=== PATIENT | female | born 1950 | race African-American/Black ===

== ENCOUNTER 2017-09-18 00:30 | Inpatient (IN) | payer MEDICARE ==
[2017-09-18 00:47] LABS: ADD MAN DIFF? NO
[2017-09-18 00:50] LABS: BASOPHILS % 0.6 % (0.0-2.0); EOSINOPHILS # 0.3 10^3/ul (0.0-0.5); EOSINOPHILS % 4.6 % (0.0-7.0); HEMATOCRIT 35.2 % (37.0-47.0); HEMOGLOBIN 11.4 g/dl (12.0-16.0); LYMPHOCYTES # 2.7 10^3/ul (0.8-2.9); LYMPHOCYTES % 50.4 % (15.0-51.0); MEAN CORPUSCULAR HEMOGLOBIN 27.5 pg (29.0-33.0); MEAN CORPUSCULAR HGB CONC 32.4 g/dl (32.0-37.0); MEAN PLATELET VOLUME 10.9 fl (7.4-10.4); MONOCYTE # 0.4 10^3/ul (0.3-0.9); MONOCYTES % 8.1 % (0.0-11.0); NEUTROPHILS % 36.1 % (39.0-77.0); PLATELET COUNT 318 10^3/UL (140-415); RED BLOOD COUNT 4.14 10^6/ul (4.20-5.40); RED CELL DISTRIBUTION WIDTH 13.1 % (11.5-14.5)
[2017-09-18 00:50] LABS: WHITE BLOOD COUNT 5.4 10^3/ul (4.8-10.8)
[2017-09-18] MEDS: SOD CHLORIDE 0.9% 100 ML (01:02)
[2017-09-18] MEDS: IOHEXOL 300MG/ML 150 ML BTL (01:03)
[2017-09-18 01:05] LABS: HEMOGLOBIN A1C 10.8 % (0-5.9)
[2017-09-18 01:08] LABS: ANION GAP 8 (8-16); BLOOD UREA NITROGEN 15 mg/dl (7-20); CALCIUM 9.2 mg/dl (8.4-10.2); CARBON DIOXIDE 37 mmol/L (21-31); CHLORIDE 101 mmol/L (97-110); CHOL/HDL RATIO 4.3 RATIO; CHOLESTEROL 219 mg/dl (100-200); CREATININE 0.65 mg/dl (0.44-1.00); GLUCOSE 351 mg/dl (70-220); HDL CHOLESTEROL 50 mg/dl (35-98); LDL CHOLESTEROL,CALCULATED 144 mg/dl; POTASSIUM 3.9 mmol/L (3.5-5.1); SODIUM 142 mmol/L (135-144); TRIGLYCERIDES 123 mg/dl (0-149)
[2017-09-18 01:19] LABS: TROPONIN-I < 0.012 ng/ml (0.00-0.12)
[2017-09-18 01:30] LABS: INR 0.86; PROTIME 11.8 Sec (11.9-14.9); PT RATIO 0.9
[2017-09-18] MEDS ORDERED: ALTEPLASE 100 MG INJ IV* (01:30)
[2017-09-18] MEDS ORDERED: ALTEPLASE (tPA) 1 MG/ML BOLUS SYG IV* (01:30)
[2017-09-18] MEDS: SOD CHLORIDE 0.9% 50 ML IV (01:30)
[2017-09-18 01:31] LABS: PARTIAL THROMBOPLASTIN TIME 26.6 Sec (25.0-35.0)
[2017-09-18] MEDS: ONDANSETRON 4 MG INJ IV (01:59)
[2017-09-18] MEDS: ASPIRIN 325 MG TAB PO (02:00)
[2017-09-18] MEDS: METOPROLOL 5 MG INJ IV (05:49)
[2017-09-18] MEDS ORDERED: ALBUTEROL/IPRATROPIUM (NEB) 3 ML AMP HHN (06:30)
[2017-09-18] MEDS ORDERED: morphine 2 MG INJ IV (06:30)
[2017-09-18] MEDS ORDERED: NACL 0.9% 3 ML SYG IV (06:30)
[2017-09-18] MEDS ORDERED: ACETAMINOPHEN 325 MG TAB PO (06:30)
[2017-09-18] MEDS ORDERED: ONDANSETRON 4 MG INJ IV (06:30)
[2017-09-18] MEDS: ENOXAPARIN 40 MG/0.4 ML SYG SC (09:00)
[2017-09-18] MEDS: ASPIRIN 81 MG TAB PO (10:05)
[2017-09-18] MEDS ORDERED: DEXTROSE 50% 50 ML SYRINGE IV ×2 (13:00)
[2017-09-18] MEDS ORDERED: GLUCOSE GEL 15 GRAM TUBE PO ×2 (13:00)
[2017-09-18] MEDS ORDERED: GLUCAGON 1 MG INJ IM (13:00)
[2017-09-18] MEDS ORDERED: GLUCOSE GEL 15 GRAM TUBE BUCCAL (13:00)
[2017-09-18] MEDS ORDERED: hydrALAzine 20 MG INJ IV (14:30)
[2017-09-18] MEDS: INSULIN ASPART [NOVOLOG] 3 ML PEN SC ×5 (15:02→20:57)
[2017-09-18] MEDS: INSULIN GLARGINE [LANtus] 3 ML PEN SC (15:03)
[2017-09-18] MEDS ORDERED: INSULIN ASPART [NOVOLOG] 3 ML PEN SC ×2 (18:00)
[2017-09-18] MEDS: ATORVASTATIN 80 MG TAB PO ×2 (20:39→21:12)
[2017-09-18] MEDS ORDERED: ATORVASTATIN 20 MG TAB PO ×2 (21:00)
[2017-09-18] MEDS: LORAZEPAM 2 MG INJ IV (21:29)
[2017-09-19] MEDS ORDERED: INSULIN ASPART [NOVOLOG] 3 ML PEN SC (02:00)
[2017-09-19] MEDS: INSULIN ASPART [NOVOLOG] 3 ML PEN SC ×5 (02:10→12:21)
[2017-09-19] MEDS: ACCU-CHEK XX (02:15)
[2017-09-19] MEDS ORDERED: INSULIN GLARGINE [LANtus] 3 ML PEN SC (08:00)
[2017-09-19] MEDS: ASPIRIN 81 MG TAB PO (09:14)
[2017-09-19] MEDS: INSULIN GLARGINE [LANtus] 3 ML PEN SC (09:16)
[2017-09-19] MEDS: ENOXAPARIN 40 MG/0.4 ML SYG SC (09:26)
[2017-09-19 09:53] LABS: ADD MAN DIFF? NO
[2017-09-19 10:01] LABS: WHITE BLOOD COUNT 4.4 10^3/ul (4.8-10.8)
[2017-09-19 10:01] LABS: BASOPHILS % 0.2 % (0.0-2.0); EOSINOPHILS # 0.2 10^3/ul (0.0-0.5); EOSINOPHILS % 4.7 % (0.0-7.0); HEMATOCRIT 35.1 % (37.0-47.0); HEMOGLOBIN 10.9 g/dl (12.0-16.0); LYMPHOCYTES # 2.2 10^3/ul (0.8-2.9); LYMPHOCYTES % 48.9 % (15.0-51.0); MEAN CORPUSCULAR HEMOGLOBIN 26.8 pg (29.0-33.0); MEAN CORPUSCULAR HGB CONC 31.1 g/dl (32.0-37.0); MEAN CORPUSCULAR VOLUME 86.5 fl (82.0-101.0); MEAN PLATELET VOLUME 10.7 fl (7.4-10.4); MONOCYTE # 0.3 10^3/ul (0.3-0.9); MONOCYTES % 6.8 % (0.0-11.0); NEUTROPHIL # 1.8 10^3/ul (1.6-7.5); NEUTROPHILS % 39.4 % (39.0-77.0); PLATELET COUNT 307 10^3/UL (140-415); RED BLOOD COUNT 4.06 10^6/ul (4.20-5.40); RED CELL DISTRIBUTION WIDTH 13.2 % (11.5-14.5)
[2017-09-19 10:20] LABS: ALANINE AMINOTRANSFERASE 19 IU/L (13-69); ALBUMIN 3.4 g/dl (3.3-4.9); ALBUMIN/GLOBULIN RATIO 0.89; ALKALINE PHOSPHATASE 148 IU/L (42-121); ANION GAP 9 (8-16); ASPARTATE AMINO TRANSFERASE 14 IU/L (15-46); BILIRUBIN,INDIRECT 0.5 mg/dl (0-1.1); BILIRUBIN,TOTAL 0.5 mg/dl (0.2-1.3); BLOOD UREA NITROGEN 15 mg/dl (7-20); CARBON DIOXIDE 34 mmol/L (21-31); CHLORIDE 103 mmol/L (97-110); CHOL/HDL RATIO 4.4 RATIO; CHOLESTEROL 203 mg/dl (100-200); CREATININE 0.64 mg/dl (0.44-1.00); GLUCOSE 201 mg/dl (70-220); HDL CHOLESTEROL 46 mg/dl (35-98); LDL CHOLESTEROL,CALCULATED 130 mg/dl; MAGNESIUM 1.8 mg/dl (1.7-2.5); POTASSIUM 3.8 mmol/L (3.5-5.1); SODIUM 142 mmol/L (135-144); TOTAL PROTEIN 7.2 g/dl (6.1-8.1); TRIGLYCERIDES 137 mg/dl (0-149)
[2017-09-19 10:48] LABS: THYROID STIMULATING HORMONE 0.499 MIU/L (0.465-4.680)
[2017-09-19 12:44] LABS: HEMOGLOBIN A1C 10.9 % (0-5.9)
[2017-09-19] MEDS ORDERED: morphine LIQ (10 MG/5 ML) CUP PO (16:00)
== END 2017-09-19 17:10 | disposition home or self-care (01) | DRG 68 ==
LOC: MS4 09-19 04:38 → E/R 00:30 → MS3 02:12
PROVIDERS: Internal Medicine
DX: I66.22 Occlusion and stenosis of left posterior cerebral artery (principal); G45.9 Transient cerebral ischemic attack, unspecified; E11.65 Type 2 diabetes mellitus with hyperglycemia; E78.5 Hyperlipidemia, unspecified; I10 Essential (primary) hypertension; I16.0 Hypertensive urgency; R47.1 Dysarthria and anarthria; R20.0 Anesthesia of skin; Z87.891 Personal history of nicotine dependence
CPT/HCPCS: 36415; 70450; 70496; 70498; 70551; 71045; 80048; 80053; 80061; 82962; 83036; 83735; 84443; 84484; 85025; 85610; 85730; 92610; 93005; 93306; 93880; 96372; 97162; 99291-25

== ENCOUNTER 2017-09-21 22:02 | Inpatient (IN) | payer MEDICARE ==
[2017-09-21] MEDS ORDERED: ONDANSETRON 4 MG INJ (23:07)
[2017-09-21 23:23] LABS: ADD MAN DIFF? NO
[2017-09-21 23:26] LABS: BASOPHILS % 0.4 % (0.0-2.0); EOSINOPHILS # 0.3 10^3/ul (0.0-0.5); HEMATOCRIT 38.7 % (37.0-47.0); HEMOGLOBIN 12.2 g/dl (12.0-16.0); LYMPHOCYTES # 3.7 10^3/ul (0.8-2.9); LYMPHOCYTES % 45.5 % (15.0-51.0); MEAN CORPUSCULAR HGB CONC 31.5 g/dl (32.0-37.0); MEAN CORPUSCULAR VOLUME 85.6 fl (82.0-101.0); MEAN PLATELET VOLUME 10.6 fl (7.4-10.4); MONOCYTE # 0.5 10^3/ul (0.3-0.9); MONOCYTES % 6.3 % (0.0-11.0); NEUTROPHIL # 3.6 10^3/ul (1.6-7.5); NEUTROPHILS % 43.7 % (39.0-77.0); PLATELET COUNT 353 10^3/UL (140-415); RED BLOOD COUNT 4.52 10^6/ul (4.20-5.40); RED CELL DISTRIBUTION WIDTH 13.2 % (11.5-14.5)
[2017-09-21 23:26] LABS: WHITE BLOOD COUNT 8.2 10^3/ul (4.8-10.8)
[2017-09-21 23:43] LABS: AMPHETAMINE/METHAMPHETAMINE Negative (NEGATIVE); BARBITURATES Negative (NEGATIVE); BENZODIAZEPINES Negative (NEGATIVE); CANNABINOIDS Negative (NEGATIVE); COCAINE Negative (NEGATIVE); OPIATES Negative (NEGATIVE)
[2017-09-21 23:45] LABS: INR 0.89; PROTIME 12.1 Sec (11.9-14.9); PT RATIO 0.9
[2017-09-21 23:46] LABS: PARTIAL THROMBOPLASTIN TIME 29.7 Sec (25.0-35.0)
[2017-09-21 23:49] LABS: ALANINE AMINOTRANSFERASE 12 IU/L (13-69); ALBUMIN 4.1 g/dl (3.3-4.9); ALBUMIN/GLOBULIN RATIO 0.89; ALKALINE PHOSPHATASE 209 IU/L (42-121); ANION GAP 15 (8-16); ASPARTATE AMINO TRANSFERASE 18 IU/L (15-46); BILIRUBIN,INDIRECT 0.5 mg/dl (0-1.1); BILIRUBIN,TOTAL 0.5 mg/dl (0.2-1.3); BLOOD UREA NITROGEN 14 mg/dl (7-20); CARBON DIOXIDE 27 mmol/L (21-31); CHLORIDE 104 mmol/L (97-110); GLUCOSE 242 mg/dl (70-220); POTASSIUM 3.8 mmol/L (3.5-5.1); SALICYLATE 2.3 mg/dl (5.0-30.0); SODIUM 142 mmol/L (135-144); TOTAL PROTEIN 8.7 g/dl (6.1-8.1)
[2017-09-21 23:51] LABS: ACETAMINOPHEN < 10.0 ug/ml (10.0-30.0)
[2017-09-21 23:53] LABS: AMMONIA < 9 umol/l (9-30)
[2017-09-22 00:04] LABS: TROPONIN-I < 0.012 ng/ml (0.000-0.120)
[2017-09-22 00:04] LABS: B-TYPE NATRIURETIC PEPTIDE 102 PG/ML (0-125)
[2017-09-22 00:12] LABS: ETHANOL < 10.0 mg/dl
[2017-09-22] MEDS: LORAZEPAM 2 MG INJ IV ×2 (00:17→04:33)
[2017-09-22] MEDS ORDERED: BISACODYL (EC) 5 MG TAB PO (00:30)
[2017-09-22] MEDS ORDERED: ONDANSETRON 4 MG INJ IV (00:30)
[2017-09-22] MEDS: ONDANSETRON 4 MG INJ IV (00:30)
[2017-09-22] MEDS ORDERED: DOCUSATE SODIUM 100 MG CAP PO (00:30)
[2017-09-22] MEDS ORDERED: NACL 0.9% 3 ML SYG IV (00:30)
[2017-09-22] MEDS: ASPIRIN 325 MG TAB PO (00:30)
[2017-09-22 00:31] LABS: THYROID STIMULATING HORMONE 0.425 MIU/L (0.465-4.680)
[2017-09-22] MEDS ORDERED: HALOPERIDOL 5 MG INJ (00:46)
[2017-09-22] MEDS: HALOPERIDOL 5 MG INJ IM (00:53)
[2017-09-22] MEDS ORDERED: GLUCOSE GEL 15 GRAM TUBE BUCCAL (01:15)
[2017-09-22] MEDS ORDERED: GLUCAGON 1 MG INJ IM (01:15)
[2017-09-22] MEDS ORDERED: DEXTROSE 50% 50 ML SYRINGE IV ×2 (01:15)
[2017-09-22] MEDS ORDERED: GLUCOSE GEL 15 GRAM TUBE PO ×2 (01:15)
[2017-09-22] MEDS ORDERED: ACCU-CHEK XX (02:00)
[2017-09-22 02:55] LABS: GAMMA GLUTAMYL TRANSPEPTIDASE 21 IU/L (0-50)
[2017-09-22] MEDS: hydrALAzine 20 MG INJ IV ×2 (04:56→21:30)
[2017-09-22] MEDS: LABETALOL HCL 20MG INJ IV (05:22)
[2017-09-22] MEDS: INSULIN ASPART [NOVOLOG] 3 ML PEN SC ×5 (06:25→21:52)
[2017-09-22] MEDS: ASPIRIN 81 MG TAB PO (09:00)
[2017-09-22] MEDS ORDERED: ASPIRIN 81 MG TAB PO (09:00)
[2017-09-22] MEDS ORDERED: LORAZEPAM 2 MG INJ IV (10:00)
[2017-09-22] MEDS: LINAGLIPTIN 5 MG TABLET PO (11:00)
[2017-09-22] MEDS ORDERED: INSULIN ASPART [NOVOLOG] 3 ML PEN SC (11:50)
[2017-09-22] MEDS: SOD CHLORIDE 0.9% 1,000 ML IV (12:02)
[2017-09-22] MEDS: INSULIN GLARGINE [LANtus] 3 ML PEN SC (12:46)
[2017-09-22] MEDS: ATORVASTATIN 80 MG TAB PO (21:00)
[2017-09-23] MEDS: INSULIN ASPART [NOVOLOG] 3 ML PEN SC ×6 (01:21→20:17)
[2017-09-23] MEDS: SOD CHLORIDE 0.9% 1,000 ML IV ×2 (01:26→14:08)
[2017-09-23 07:10] LABS: ADD MAN DIFF? NO
[2017-09-23 07:12] LABS: WHITE BLOOD COUNT 9.6 10^3/ul (4.8-10.8)
[2017-09-23 07:12] LABS: BASOPHILS % 0.2 % (0.0-2.0); EOSINOPHILS % 0.1 % (0.0-7.0); HEMATOCRIT 36.4 % (37.0-47.0); HEMOGLOBIN 11.4 g/dl (12.0-16.0); LYMPHOCYTES # 2.4 10^3/ul (0.8-2.9); LYMPHOCYTES % 25.1 % (15.0-51.0); MEAN CORPUSCULAR HEMOGLOBIN 26.7 pg (29.0-33.0); MEAN CORPUSCULAR HGB CONC 31.3 g/dl (32.0-37.0); MEAN CORPUSCULAR VOLUME 85.2 fl (82.0-101.0); MEAN PLATELET VOLUME 10.8 fl (7.4-10.4); MONOCYTE # 0.7 10^3/ul (0.3-0.9); MONOCYTES % 7.1 % (0.0-11.0); NEUTROPHIL # 6.4 10^3/ul (1.6-7.5); NEUTROPHILS % 67.2 % (39.0-77.0); PLATELET COUNT 330 10^3/UL (140-415); RED BLOOD COUNT 4.27 10^6/ul (4.20-5.40)
[2017-09-23 07:41] LABS: ALANINE AMINOTRANSFERASE 16 IU/L (13-69); ALBUMIN 3.9 g/dl (3.3-4.9); ALBUMIN/GLOBULIN RATIO 0.88; ALKALINE PHOSPHATASE 165 IU/L (42-121); ANION GAP 17 (8-16); ASPARTATE AMINO TRANSFERASE 17 IU/L (15-46); BILIRUBIN,INDIRECT 0.8 mg/dl (0-1.1); BILIRUBIN,TOTAL 0.8 mg/dl (0.2-1.3); BLOOD UREA NITROGEN 17 mg/dl (7-20); CALCIUM 8.9 mg/dl (8.4-10.2); CARBON DIOXIDE 26 mmol/L (21-31); CHLORIDE 104 mmol/L (97-110); CREATININE 0.66 mg/dl (0.44-1.00); GLUCOSE 184 mg/dl (70-220); POTASSIUM 3.7 mmol/L (3.5-5.1); SODIUM 143 mmol/L (135-144); TOTAL PROTEIN 8.3 g/dl (6.1-8.1)
[2017-09-23 07:46] LABS: FREE T4 (FREE THYROXINE) 1.29 ng/dl (0.78-2.44)
[2017-09-23] MEDS: LINAGLIPTIN 5 MG TABLET PO (08:29)
[2017-09-23] MEDS: ASPIRIN 81 MG TAB PO (08:29)
[2017-09-23 08:51] LABS: FREE T3 2.45 pg/ml (2.77-5.27)
[2017-09-23] MEDS: INSULIN GLARGINE [LANtus] 3 ML PEN SC (20:13)
[2017-09-23] MEDS: ATORVASTATIN 80 MG TAB PO (21:00)
[2017-09-24] MEDS: INSULIN ASPART [NOVOLOG] 3 ML PEN SC ×6 (01:00→21:00)
[2017-09-24] MEDS: SOD CHLORIDE 0.9% 1,000 ML IV ×2 (05:20→15:28)
[2017-09-24] MEDS: LINAGLIPTIN 5 MG TABLET PO (08:40)
[2017-09-24] MEDS: ASPIRIN 81 MG TAB PO (08:40)
[2017-09-24] MEDS: LISINOPRIL 10 MG TAB PO (10:32)
[2017-09-24] MEDS: Discontinue current oral sulfonylureas (glyburide, glipizide, and/or glimepiride) prior to XX (11:13)
[2017-09-24 15:40] LABS: ALBUMIN 3.2 g/dl (3.3-4.9); ANION GAP 10 (8-16); BLOOD UREA NITROGEN 19 mg/dl (7-20); CALCIUM 8.8 mg/dl (8.4-10.2); CARBON DIOXIDE 27 mmol/L (21-31); CHLORIDE 110 mmol/L (97-110); CREATININE 0.65 mg/dl (0.44-1.00); GLUCOSE 123 mg/dl (70-220); MAGNESIUM 1.7 mg/dl (1.7-2.5); PHOSPHORUS 3.7 mg/dl (2.5-4.9); POTASSIUM 3.7 mmol/L (3.5-5.1); SODIUM 143 mmol/L (135-144)
[2017-09-24] MEDS: hydrALAzine 20 MG INJ IV (17:11)
[2017-09-24] MEDS: INSULIN GLARGINE [LANtus] 3 ML PEN SC (20:16)
[2017-09-24] MEDS: ATORVASTATIN 80 MG TAB PO (20:22)
[2017-09-25] MEDS: ACETAMINOPHEN 325 MG TAB PO ×2 (01:59→09:13)
[2017-09-25] MEDS: hydrALAzine 20 MG INJ IV (01:59)
[2017-09-25] MEDS: SOD CHLORIDE 0.9% 1,000 ML IV ×2 (05:10→09:18)
[2017-09-25] MEDS: LINAGLIPTIN 5 MG TABLET PO (09:12)
[2017-09-25] MEDS: LISINOPRIL 10 MG TAB PO ×2 (09:15→18:12)
[2017-09-25] MEDS: ASPIRIN 81 MG TAB PO (09:15)
[2017-09-25] MEDS: INSULIN ASPART [NOVOLOG] 3 ML PEN SC ×4 (09:29→21:23)
[2017-09-25 12:10] LABS: ADD MAN DIFF? NO
[2017-09-25 12:18] LABS: BASOPHILS % 0.4 % (0.0-2.0); EOSINOPHILS # 0.2 10^3/ul (0.0-0.5); EOSINOPHILS % 1.9 % (0.0-7.0); HEMATOCRIT 32.8 % (37.0-47.0); HEMOGLOBIN 10.1 g/dl (12.0-16.0); LYMPHOCYTES # 1.9 10^3/ul (0.8-2.9); LYMPHOCYTES % 22.4 % (15.0-51.0); MEAN CORPUSCULAR HEMOGLOBIN 27.5 pg (29.0-33.0); MEAN CORPUSCULAR HGB CONC 30.8 g/dl (32.0-37.0); MEAN CORPUSCULAR VOLUME 89.4 fl (82.0-101.0); MEAN PLATELET VOLUME 10.5 fl (7.4-10.4); MONOCYTE # 0.7 10^3/ul (0.3-0.9); NEUTROPHIL # 5.7 10^3/ul (1.6-7.5); NEUTROPHILS % 67.1 % (39.0-77.0); PLATELET COUNT 263 10^3/UL (140-415); RED BLOOD COUNT 3.67 10^6/ul (4.20-5.40); RED CELL DISTRIBUTION WIDTH 13.6 % (11.5-14.5)
[2017-09-25 12:18] LABS: WHITE BLOOD COUNT 8.5 10^3/ul (4.8-10.8)
[2017-09-25 12:31] LABS: ALBUMIN 3.2 g/dl (3.3-4.9); ANION GAP 13 (8-16); BLOOD UREA NITROGEN 17 mg/dl (7-20); CALCIUM 8.3 mg/dl (8.4-10.2); CARBON DIOXIDE 23 mmol/L (21-31); CHLORIDE 108 mmol/L (97-110); CREATININE 0.69 mg/dl (0.44-1.00); GLUCOSE 175 mg/dl (70-220); MAGNESIUM 1.7 mg/dl (1.7-2.5); PHOSPHORUS 4.1 mg/dl (2.5-4.9); POTASSIUM 3.6 mmol/L (3.5-5.1); SODIUM 140 mmol/L (135-144)
[2017-09-25] MEDS: SOD CHLORIDE 0.45% 1,000 ML IV (15:37)
[2017-09-25] MEDS: INSULIN GLARGINE [LANtus] 3 ML PEN SC (21:24)
[2017-09-25] MEDS: ATORVASTATIN 80 MG TAB PO (21:46)
[2017-09-26] MEDS: hydrALAzine 20 MG INJ IV ×2 (00:01→11:18)
[2017-09-26] MEDS: ACETAMINOPHEN 325 MG TAB PO ×2 (00:01→23:56)
[2017-09-26] MEDS: SOD CHLORIDE 0.45% 1,000 ML IV (04:18)
[2017-09-26 06:22] LABS: ADD MAN DIFF? NO; BASOPHILS % 0.3 % (0.0-2.0); EOSINOPHILS # 0.2 10^3/ul (0.0-0.5); EOSINOPHILS % 2.6 % (0.0-7.0); HEMATOCRIT 31.6 % (37.0-47.0); LYMPHOCYTES # 2.1 10^3/ul (0.8-2.9); LYMPHOCYTES % 24.6 % (15.0-51.0); MEAN CORPUSCULAR HEMOGLOBIN 27.2 pg (29.0-33.0); MEAN CORPUSCULAR HGB CONC 31.6 g/dl (32.0-37.0); MEAN CORPUSCULAR VOLUME 86.1 fl (82.0-101.0); MEAN PLATELET VOLUME 10.5 fl (7.4-10.4); MONOCYTE # 0.9 10^3/ul (0.3-0.9); MONOCYTES % 9.8 % (0.0-11.0); NEUTROPHIL # 5.5 10^3/ul (1.6-7.5); NEUTROPHILS % 62.6 % (39.0-77.0); PLATELET COUNT 269 10^3/UL (140-415); RED BLOOD COUNT 3.67 10^6/ul (4.20-5.40); RED CELL DISTRIBUTION WIDTH 13.6 % (11.5-14.5)
[2017-09-26 06:22] LABS: WHITE BLOOD COUNT 8.7 10^3/ul (4.8-10.8)
[2017-09-26 06:57] LABS: CHOLESTEROL 142 mg/dl (100-200)
[2017-09-26 06:57] LABS: CHOL/HDL RATIO 3.4 RATIO; HDL CHOLESTEROL 41 mg/dl (35-98); LDL CHOLESTEROL,CALCULATED 82 mg/dl; TRIGLYCERIDES 96 mg/dl (0-149)
[2017-09-26 07:00] LABS: ALBUMIN 2.8 g/dl (3.3-4.9); ANION GAP 13 (8-16); BLOOD UREA NITROGEN 13 mg/dl (7-20); CALCIUM 8.5 mg/dl (8.4-10.2); CARBON DIOXIDE 24 mmol/L (21-31); CHLORIDE 110 mmol/L (97-110); CREATININE 0.57 mg/dl (0.44-1.00); GLUCOSE 173 mg/dl (70-220); MAGNESIUM 1.7 mg/dl (1.7-2.5); PHOSPHORUS 3.2 mg/dl (2.5-4.9); POTASSIUM 3.5 mmol/L (3.5-5.1); SODIUM 143 mmol/L (135-144)
[2017-09-26] MEDS: INSULIN ASPART [NOVOLOG] 3 ML PEN SC ×4 (07:55→21:10)
[2017-09-26] MEDS: LINAGLIPTIN 5 MG TABLET PO (08:20)
[2017-09-26] MEDS: LISINOPRIL 20 MG TAB PO (08:20)
[2017-09-26] MEDS: ASPIRIN 81 MG TAB PO (08:20)
[2017-09-26] MEDS: AMLODIPINE 5 MG TAB PO ×2 (11:49→15:59)
[2017-09-26] MEDS: metFORMIN 500 MG TAB PO (17:13)
[2017-09-26] MEDS: ATORVASTATIN 80 MG TAB PO (21:11)
[2017-09-26] MEDS: LABETALOL HCL 20MG INJ IV (21:14)
[2017-09-27] MEDS: glipiZIDE 5 MG TAB PO (08:12)
[2017-09-27] MEDS: metFORMIN 500 MG TAB PO ×2 (08:12→17:36)
[2017-09-27] MEDS: INSULIN ASPART [NOVOLOG] 3 ML PEN SC ×4 (08:20→21:00)
[2017-09-27] MEDS: ASPIRIN 81 MG TAB PO (08:52)
[2017-09-27] MEDS: AMLODIPINE 10 MG TAB PO (08:53)
[2017-09-27] MEDS: LISINOPRIL 20 MG TAB PO ×2 (08:53→21:08)
[2017-09-27] MEDS: LINAGLIPTIN 5 MG TABLET PO (08:53)
[2017-09-27 09:02] LABS: ADD MAN DIFF? NO
[2017-09-27 09:12] LABS: BASOPHILS % 0.4 % (0.0-2.0); EOSINOPHILS # 0.3 10^3/ul (0.0-0.5); EOSINOPHILS % 4.3 % (0.0-7.0); HEMATOCRIT 27.3 % (37.0-47.0); HEMOGLOBIN 8.7 g/dl (12.0-16.0); LYMPHOCYTES # 1.6 10^3/ul (0.8-2.9); LYMPHOCYTES % 21.6 % (15.0-51.0); MEAN CORPUSCULAR HEMOGLOBIN 27.3 pg (29.0-33.0); MEAN CORPUSCULAR HGB CONC 31.9 g/dl (32.0-37.0); MEAN CORPUSCULAR VOLUME 85.6 fl (82.0-101.0); MONOCYTE # 0.7 10^3/ul (0.3-0.9); MONOCYTES % 8.7 % (0.0-11.0); NEUTROPHIL # 4.9 10^3/ul (1.6-7.5); NEUTROPHILS % 64.9 % (39.0-77.0); PLATELET COUNT 254 10^3/UL (140-415); RED BLOOD COUNT 3.19 10^6/ul (4.20-5.40); RED CELL DISTRIBUTION WIDTH 13.5 % (11.5-14.5)
[2017-09-27 09:12] LABS: WHITE BLOOD COUNT 7.6 10^3/ul (4.8-10.8)
[2017-09-27 09:29] LABS: ALBUMIN 2.8 g/dl (3.3-4.9); ANION GAP 9 (8-16); BLOOD UREA NITROGEN 6 mg/dl (7-20); CALCIUM 8.6 mg/dl (8.4-10.2); CARBON DIOXIDE 28 mmol/L (21-31); CHLORIDE 109 mmol/L (97-110); CREATININE 0.54 mg/dl (0.44-1.00); GLUCOSE 161 mg/dl (70-220); MAGNESIUM 1.7 mg/dl (1.7-2.5); POTASSIUM 3.2 mmol/L (3.5-5.1); SODIUM 143 mmol/L (135-144)
[2017-09-27] MEDS: ATORVASTATIN 80 MG TAB PO (21:08)
[2017-09-28] MEDS: LABETALOL HCL 20MG INJ IV (02:03)
[2017-09-28] MEDS: INSULIN ASPART [NOVOLOG] 3 ML PEN SC ×4 (08:00→20:59)
[2017-09-28] MEDS: glipiZIDE 5 MG TAB PO (08:01)
[2017-09-28] MEDS: metFORMIN 500 MG TAB PO ×2 (08:01→17:33)
[2017-09-28] MEDS: LINAGLIPTIN 5 MG TABLET PO (08:01)
[2017-09-28] MEDS: LISINOPRIL 20 MG TAB PO (08:01)
[2017-09-28] MEDS: ASPIRIN 81 MG TAB PO (08:01)
[2017-09-28] MEDS: AMLODIPINE 10 MG TAB PO (08:02)
[2017-09-28 09:33] LABS: ADD MAN DIFF? NO
[2017-09-28 09:38] LABS: WHITE BLOOD COUNT 7.1 10^3/ul (4.8-10.8)
[2017-09-28 09:38] LABS: BASOPHILS % 0.3 % (0.0-2.0); EOSINOPHILS # 0.3 10^3/ul (0.0-0.5); HEMATOCRIT 27.5 % (37.0-47.0); HEMOGLOBIN 8.7 g/dl (12.0-16.0); LYMPHOCYTES # 1.6 10^3/ul (0.8-2.9); LYMPHOCYTES % 22.2 % (15.0-51.0); MEAN CORPUSCULAR HEMOGLOBIN 27.2 pg (29.0-33.0); MEAN CORPUSCULAR HGB CONC 31.6 g/dl (32.0-37.0); MEAN CORPUSCULAR VOLUME 85.9 fl (82.0-101.0); MEAN PLATELET VOLUME 10.8 fl (7.4-10.4); MONOCYTE # 0.6 10^3/ul (0.3-0.9); MONOCYTES % 8.8 % (0.0-11.0); NEUTROPHIL # 4.6 10^3/ul (1.6-7.5); NEUTROPHILS % 64.4 % (39.0-77.0); PLATELET COUNT 271 10^3/UL (140-415); RED CELL DISTRIBUTION WIDTH 13.5 % (11.5-14.5)
[2017-09-28 10:08] LABS: ANION GAP 12 (8-16); BLOOD UREA NITROGEN 6 mg/dl (7-20); CALCIUM 8.1 mg/dl (8.4-10.2); CARBON DIOXIDE 27 mmol/L (21-31); CHLORIDE 106 mmol/L (97-110); CREATININE 0.55 mg/dl (0.44-1.00); GLUCOSE 76 mg/dl (70-220); MAGNESIUM 1.5 mg/dl (1.7-2.5); PHOSPHORUS 3.1 mg/dl (2.5-4.9); POTASSIUM 3.1 mmol/L (3.5-5.1); SODIUM 142 mmol/L (135-144)
[2017-09-28] MEDS: MAGNESIUM SULFATE 2 GM/50 ML 50 ML IVPB (11:16)
[2017-09-28] MEDS: POTASSIUM CHLORIDE 20 MEQ POWDER FOR ORAL SOLN PO (11:16)
[2017-09-28] MEDS: POTASSIUM CHLORIDE 100 ML IVPB ×2 (13:07→13:08)
[2017-09-28] MEDS: ATORVASTATIN 80 MG TAB PO (21:01)
[2017-09-29] MEDS: glipiZIDE 5 MG TAB PO (06:34)
[2017-09-29] MEDS: LABETALOL HCL 20MG INJ IV (06:34)
[2017-09-29] MEDS: INSULIN ASPART [NOVOLOG] 3 ML PEN SC ×2 (08:00→11:42)
[2017-09-29] MEDS: ASPIRIN 81 MG TAB PO (08:07)
[2017-09-29] MEDS: AMLODIPINE 10 MG TAB PO (08:07)
[2017-09-29] MEDS: metFORMIN 500 MG TAB PO (08:08)
[2017-09-29] MEDS: LINAGLIPTIN 5 MG TABLET PO (08:08)
[2017-09-29] MEDS: LISINOPRIL 20 MG TAB PO (08:11)
[2017-09-29] MEDS: ACETAMINOPHEN 325 MG TAB PO (08:18)
[2017-09-29 09:29] LABS: ADD MAN DIFF? NO
[2017-09-29 09:32] LABS: BASOPHILS % 0.3 % (0.0-2.0); EOSINOPHILS # 0.3 10^3/ul (0.0-0.5); EOSINOPHILS % 3.3 % (0.0-7.0); HEMATOCRIT 31.2 % (37.0-47.0); HEMOGLOBIN 9.7 g/dl (12.0-16.0); LYMPHOCYTES # 1.6 10^3/ul (0.8-2.9); LYMPHOCYTES % 19.4 % (15.0-51.0); MEAN CORPUSCULAR HEMOGLOBIN 26.9 pg (29.0-33.0); MEAN CORPUSCULAR HGB CONC 31.1 g/dl (32.0-37.0); MEAN CORPUSCULAR VOLUME 86.4 fl (82.0-101.0); MEAN PLATELET VOLUME 11.2 fl (7.4-10.4); MONOCYTE # 0.6 10^3/ul (0.3-0.9); MONOCYTES % 7.2 % (0.0-11.0); NEUTROPHIL # 5.6 10^3/ul (1.6-7.5); NEUTROPHILS % 69.5 % (39.0-77.0); PLATELET COUNT 310 10^3/UL (140-415); RED BLOOD COUNT 3.61 10^6/ul (4.20-5.40); RED CELL DISTRIBUTION WIDTH 13.5 % (11.5-14.5)
[2017-09-29 09:50] LABS: IRON 28 ug/dl (35-150)
[2017-09-29 09:52] LABS: ANION GAP 10 (8-16); BLOOD UREA NITROGEN 6 mg/dl (7-20); CALCIUM 8.8 mg/dl (8.4-10.2); CARBON DIOXIDE 31 mmol/L (21-31); CHLORIDE 105 mmol/L (97-110); GLUCOSE 115 mg/dl (70-220); MAGNESIUM 1.8 mg/dl (1.7-2.5); PHOSPHORUS 2.5 mg/dl (2.5-4.9); POTASSIUM 3.8 mmol/L (3.5-5.1); SODIUM 142 mmol/L (135-144)
[2017-09-29 09:59] LABS: % IRON SATURATION 10 % SAT (22-52); TOTAL IRON BINDING CAPACITY 284 ug/dl (241-421)
[2017-09-29 11:29] LABS: FERRITIN 26.3 ng/ml (11.1-264.0)
[2017-09-29 11:33] LABS: LACTATE DEHYDROGENASE 768 IU/L (313-618)
[2017-09-29] MEDS: FERROUS SULFATE (EC) 325 MG TAB PO (13:05)
[2017-10-04 15:41] LABS: HAPTOGLOBIN 288 mg/dL (43-212)
== END 2017-09-29 14:22 | DRG 64 ==
LOC: MS4 09-26 23:15 → TEL 09-22 00:15 → E/R 22:02
PROVIDERS: Family Medicine
DX: I63.9 Cerebral infarction, unspecified (principal); G93.40 Encephalopathy, unspecified; R47.01 Aphasia; I10 Essential (primary) hypertension; E11.9 Type 2 diabetes mellitus without complications; E05.90 Thyrotoxicosis, unspecified without thyrotoxic crisis or storm; K80.80 Other cholelithiasis without obstruction; F41.9 Anxiety disorder, unspecified; Z78.1 Physical restraint status; Z79.4 Long term (current) use of insulin; Z79.82 Long term (current) use of aspirin
CPT/HCPCS: 36415; 70450; 70551; 71045; 76705; 80048; 80053; 80061; 80069; 80307; 82140; 82728; 82962; 82977; 83010; 83540; 83615; 83735; 83880; 84100; 84439; 84443; 84481; 84484; 85025; 85610; 85730; 92526; 92610; 93005; 96372; 96374; 97110; 97116; 97162; 97165; 97530; 97535; 99285-25

== ENCOUNTER 2017-09-29 14:39 | Inpatient (IN) | payer MEDICARE ==
[2017-09-29] MEDS ORDERED: DEXTROSE 50% 50 ML SYRINGE IV ×2 (16:00)
[2017-09-29] MEDS ORDERED: GLUCAGON 1 MG INJ IM (16:00)
[2017-09-29] MEDS ORDERED: GLUCOSE GEL 15 GRAM TUBE PO ×2 (16:00)
[2017-09-29] MEDS ORDERED: BISACODYL (EC) 5 MG TAB PO (16:00)
[2017-09-29] MEDS ORDERED: GLUCOSE GEL 15 GRAM TUBE BUCCAL (16:00)
[2017-09-29] MEDS: ACETAMINOPHEN 325 MG TAB PO (16:01)
[2017-09-29] MEDS: INSULIN ASPART [NOVOLOG] 3 ML PEN SC ×2 (18:30→21:00)
[2017-09-29] MEDS: metFORMIN 500 MG TAB PO (18:30)
[2017-09-29] MEDS ORDERED: BISACODYL 10 MG SUPP PR (19:00)
[2017-09-29] MEDS ORDERED: MAGNESIUM HYDROXIDE 30ML CUP PO (19:00)
[2017-09-29] MEDS: DOCUSATE SODIUM 100 MG CAP PO (21:23)
[2017-09-29] MEDS: ATORVASTATIN 80 MG TAB PO (21:23)
[2017-09-29 22:31] LABS: ADD UMIC YES; UR ASCORBIC ACID NEGATIVE (NEGATIVE); UR BACTERIA FEW /HPF (NONE SEEN); UR BILIRUBIN (Dip) NEGATIVE (NEGATIVE); UR BLOOD (Dip) NEGATIVE (NEGATIVE); UR CLARITY CLEAR (CLEAR); UR COLOR YELLOW (YELLOW); UR GLUCOSE (Dip) NEGATIVE (NEGATIVE); UR KETONES (Dip) NEGATIVE (NEGATIVE); UR LEUKOCYTE ESTERASE (Dip) TRACE Leu/ul (NEGATIVE); UR NITRITE (Dip) NEGATIVE (NEGATIVE); UR RBC 1 /HPF (0-5); UR SPECIFIC GRAVITY (Dip) 1.008 (1.003-1.030); UR SQUAMOUS EPITHELIAL CELL FEW /HPF (FEW); UR TOTAL PROTEIN (Dip) NEGATIVE (NEGATIVE); UR UROBILINOGEN (Dip) 2+ mg/dL (NEGATIVE); UR WBC 0 /HPF (0-5)
[2017-09-30] MEDS: ACCU-CHEK XX (02:00)
[2017-09-30] MEDS: ACETAMINOPHEN 325 MG TAB PO (02:27)
[2017-09-30] MEDS ORDERED: glipiZIDE 5 MG TAB PO (07:05)
[2017-09-30] MEDS: INSULIN ASPART [NOVOLOG] 3 ML PEN SC ×4 (07:31→20:22)
[2017-09-30] MEDS: metFORMIN 500 MG TAB PO ×2 (07:32→17:12)
[2017-09-30] MEDS ORDERED: SENNA TAB PO (09:00)
[2017-09-30 09:22] LABS: ADD MAN DIFF? NO
[2017-09-30] MEDS: LINAGLIPTIN 5 MG TABLET PO (09:32)
[2017-09-30] MEDS: DOCUSATE SODIUM 100 MG CAP PO ×2 (09:32→20:14)
[2017-09-30] MEDS: LIDOCAINE 5% PATCH TD (09:32)
[2017-09-30 09:33] LABS: WHITE BLOOD COUNT 6.8 10^3/ul (4.8-10.8)
[2017-09-30 09:33] LABS: BASOPHILS % 0.3 % (0.0-2.0); EOSINOPHILS # 0.3 10^3/ul (0.0-0.5); EOSINOPHILS % 4.1 % (0.0-7.0); HEMOGLOBIN 10.4 g/dl (12.0-16.0); LYMPHOCYTES # 1.9 10^3/ul (0.8-2.9); LYMPHOCYTES % 27.6 % (15.0-51.0); MEAN CORPUSCULAR HEMOGLOBIN 27.4 pg (29.0-33.0); MEAN CORPUSCULAR HGB CONC 31.5 g/dl (32.0-37.0); MEAN CORPUSCULAR VOLUME 87.1 fl (82.0-101.0); MONOCYTE # 0.6 10^3/ul (0.3-0.9); MONOCYTES % 8.5 % (0.0-11.0); NEUTROPHIL # 4.1 10^3/ul (1.6-7.5); NEUTROPHILS % 59.4 % (39.0-77.0); PLATELET COUNT 333 10^3/UL (140-415); RED BLOOD COUNT 3.79 10^6/ul (4.20-5.40); RED CELL DISTRIBUTION WIDTH 13.3 % (11.5-14.5)
[2017-09-30] MEDS: LISINOPRIL 20 MG TAB PO (09:33)
[2017-09-30] MEDS: AMLODIPINE 10 MG TAB PO (09:33)
[2017-09-30] MEDS: ASPIRIN 81 MG TAB PO (09:34)
[2017-09-30 09:53] LABS: ALANINE AMINOTRANSFERASE 20 IU/L (13-69); ALBUMIN 3.6 g/dl (3.3-4.9); ALBUMIN/GLOBULIN RATIO 0.87; ALKALINE PHOSPHATASE 133 IU/L (42-121); ANION GAP 13 (8-16); ASPARTATE AMINO TRANSFERASE 30 IU/L (15-46); BILIRUBIN,INDIRECT 0.2 mg/dl (0-1.1); BILIRUBIN,TOTAL 0.2 mg/dl (0.2-1.3); BLOOD UREA NITROGEN 8 mg/dl (7-20); CALCIUM 8.9 mg/dl (8.4-10.2); CARBON DIOXIDE 29 mmol/L (21-31); CHLORIDE 104 mmol/L (97-110); CREATININE 0.62 mg/dl (0.44-1.00); GLUCOSE 153 mg/dl (70-220); SODIUM 142 mmol/L (135-144); TOTAL PROTEIN 7.7 g/dl (6.1-8.1)
[2017-09-30] MEDS: FERROUS SULFATE (EC) 325 MG TAB PO (20:15)
[2017-09-30] MEDS: ATORVASTATIN 80 MG TAB PO (20:17)
[2017-09-30] MEDS: SENNA TAB PO (20:20)
[2017-10-01] MEDS: ACCU-CHEK XX (02:00)
[2017-10-01] MEDS: INSULIN ASPART [NOVOLOG] 3 ML PEN SC ×4 (07:35→21:00)
[2017-10-01] MEDS: ASPIRIN 81 MG TAB PO (09:12)
[2017-10-01] MEDS: DOCUSATE SODIUM 100 MG CAP PO ×2 (09:12→21:00)
[2017-10-01] MEDS: metFORMIN 500 MG TAB PO ×2 (09:12→17:44)
[2017-10-01] MEDS: FERROUS SULFATE (EC) 325 MG TAB PO ×2 (09:12→21:40)
[2017-10-01] MEDS: LISINOPRIL 20 MG TAB PO (09:13)
[2017-10-01] MEDS: LIDOCAINE 5% PATCH TD (09:14)
[2017-10-01] MEDS: LINAGLIPTIN 5 MG TABLET PO (09:16)
[2017-10-01] MEDS: AMLODIPINE 10 MG TAB PO (09:17)
[2017-10-01] MEDS: SENNA TAB PO (21:00)
[2017-10-01] MEDS: ATORVASTATIN 80 MG TAB PO (21:45)
[2017-10-01] MEDS: ACETAMINOPHEN 325 MG TAB PO (23:37)
[2017-10-02] MEDS: ACCU-CHEK XX (02:00)
[2017-10-02 06:46] LABS: ADD MAN DIFF? NO
[2017-10-02 06:50] LABS: BASOPHILS % 0.5 % (0.0-2.0); EOSINOPHILS # 0.3 10^3/ul (0.0-0.5); EOSINOPHILS % 4.3 % (0.0-7.0); HEMATOCRIT 29.2 % (37.0-47.0); HEMOGLOBIN 9.1 g/dl (12.0-16.0); LYMPHOCYTES # 1.9 10^3/ul (0.8-2.9); LYMPHOCYTES % 30.8 % (15.0-51.0); MEAN CORPUSCULAR HGB CONC 31.2 g/dl (32.0-37.0); MEAN CORPUSCULAR VOLUME 86.6 fl (82.0-101.0); MEAN PLATELET VOLUME 10.2 fl (7.4-10.4); MONOCYTE # 0.5 10^3/ul (0.3-0.9); MONOCYTES % 8.2 % (0.0-11.0); NEUTROPHIL # 3.4 10^3/ul (1.6-7.5); PLATELET COUNT 332 10^3/UL (140-415); RED BLOOD COUNT 3.37 10^6/ul (4.20-5.40); RED CELL DISTRIBUTION WIDTH 13.1 % (11.5-14.5)
[2017-10-02 07:54] LABS: ANION GAP 13 (8-16); BLOOD UREA NITROGEN 12 mg/dl (7-20); CALCIUM 8.8 mg/dl (8.4-10.2); CARBON DIOXIDE 31 mmol/L (21-31); CHLORIDE 104 mmol/L (97-110); GLUCOSE 156 mg/dl (70-220); MAGNESIUM 1.6 mg/dl (1.7-2.5); PHOSPHORUS 3.6 mg/dl (2.5-4.9); POTASSIUM 3.7 mmol/L (3.5-5.1); SODIUM 144 mmol/L (135-144)
[2017-10-02] MEDS: metFORMIN 500 MG TAB PO ×2 (08:03→17:39)
[2017-10-02] MEDS: INSULIN ASPART [NOVOLOG] 3 ML PEN SC ×4 (08:08→21:00)
[2017-10-02] MEDS: LIDOCAINE 5% PATCH TD (08:27)
[2017-10-02] MEDS: FERROUS SULFATE (EC) 325 MG TAB PO ×2 (08:28→21:49)
[2017-10-02] MEDS: LISINOPRIL 20 MG TAB PO (08:28)
[2017-10-02] MEDS: DOCUSATE SODIUM 100 MG CAP PO ×2 (08:28→21:00)
[2017-10-02] MEDS: ASPIRIN 81 MG TAB PO (08:28)
[2017-10-02] MEDS: AMLODIPINE 10 MG TAB PO (08:28)
[2017-10-02] MEDS: LINAGLIPTIN 5 MG TABLET PO (08:29)
[2017-10-02] MEDS: MAGNESIUM CHLORIDE (SR) 64 MG TAB PO (12:16)
[2017-10-02] MEDS: SENNA TAB PO (21:00)
[2017-10-02] MEDS: ATORVASTATIN 80 MG TAB PO (21:49)
[2017-10-02] MEDS: ACETAMINOPHEN 325 MG TAB PO (21:50)
[2017-10-03] MEDS: ACCU-CHEK XX (02:00)
[2017-10-03] MEDS: INSULIN ASPART [NOVOLOG] 3 ML PEN SC ×4 (07:35→21:00)
[2017-10-03] MEDS: FERROUS SULFATE (EC) 325 MG TAB PO ×2 (08:09→21:07)
[2017-10-03] MEDS: LINAGLIPTIN 5 MG TABLET PO (08:09)
[2017-10-03] MEDS: LIDOCAINE 5% PATCH TD (08:09)
[2017-10-03] MEDS: AMLODIPINE 10 MG TAB PO (08:09)
[2017-10-03] MEDS: metFORMIN 500 MG TAB PO ×2 (08:09→17:37)
[2017-10-03] MEDS: LISINOPRIL 20 MG TAB PO (08:10)
[2017-10-03] MEDS: ASPIRIN 81 MG TAB PO (08:10)
[2017-10-03] MEDS: DOCUSATE SODIUM 100 MG CAP PO ×2 (08:10→21:00)
[2017-10-03] MEDS: SENNA TAB PO (21:00)
[2017-10-03] MEDS: ATORVASTATIN 80 MG TAB PO (21:07)
[2017-10-04] MEDS: ACCU-CHEK XX (02:00)
[2017-10-04] MEDS: INSULIN ASPART [NOVOLOG] 3 ML PEN SC ×4 (07:35→21:00)
[2017-10-04] MEDS: metFORMIN 500 MG TAB PO ×2 (07:55→17:42)
[2017-10-04] MEDS: DOCUSATE SODIUM 100 MG CAP PO ×2 (08:54→21:00)
[2017-10-04] MEDS: FERROUS SULFATE (EC) 325 MG TAB PO ×2 (08:54→21:08)
[2017-10-04] MEDS: AMLODIPINE 10 MG TAB PO (08:55)
[2017-10-04] MEDS: LIDOCAINE 5% PATCH TD (08:55)
[2017-10-04] MEDS: ASPIRIN 81 MG TAB PO (08:55)
[2017-10-04] MEDS: LINAGLIPTIN 5 MG TABLET PO (08:55)
[2017-10-04] MEDS: LISINOPRIL 20 MG TAB PO (08:55)
[2017-10-04] MEDS ORDERED: ONDANSETRON 4 MG TAB PO (15:30)
[2017-10-04] MEDS: ATORVASTATIN 80 MG TAB PO (21:08)
[2017-10-04] MEDS: SENNA TAB PO (21:08)
[2017-10-04] MEDS: ACETAMINOPHEN 325 MG TAB PO (21:08)
[2017-10-05] MEDS: ACCU-CHEK XX (02:00)
[2017-10-05] MEDS: INSULIN ASPART [NOVOLOG] 3 ML PEN SC ×4 (07:35→20:57)
[2017-10-05] MEDS: metFORMIN 500 MG TAB PO ×2 (07:47→17:28)
[2017-10-05] MEDS: ASPIRIN 81 MG TAB PO (08:04)
[2017-10-05] MEDS: AMLODIPINE 10 MG TAB PO (08:04)
[2017-10-05] MEDS: LINAGLIPTIN 5 MG TABLET PO (08:04)
[2017-10-05] MEDS: FERROUS SULFATE (EC) 325 MG TAB PO ×2 (08:04→20:56)
[2017-10-05] MEDS: DOCUSATE SODIUM 100 MG CAP PO ×2 (08:04→20:56)
[2017-10-05] MEDS: LIDOCAINE 5% PATCH TD (08:05)
[2017-10-05] MEDS: LISINOPRIL 20 MG TAB PO (08:11)
[2017-10-05] MEDS: ATORVASTATIN 80 MG TAB PO (20:56)
[2017-10-05] MEDS: SENNA TAB PO (20:56)
[2017-10-06] MEDS: ACCU-CHEK XX (02:00)
[2017-10-06] MEDS: INSULIN ASPART [NOVOLOG] 3 ML PEN SC (07:35)
[2017-10-06] MEDS: metFORMIN 500 MG TAB PO (07:53)
[2017-10-06] MEDS: LIDOCAINE 5% PATCH TD (09:31)
[2017-10-06] MEDS: FERROUS SULFATE (EC) 325 MG TAB PO (09:32)
[2017-10-06] MEDS: AMLODIPINE 10 MG TAB PO (09:32)
[2017-10-06] MEDS: LACTULOSE 30ML CUP PO (09:32)
[2017-10-06] MEDS: LINAGLIPTIN 5 MG TABLET PO (09:32)
[2017-10-06] MEDS: LISINOPRIL 20 MG TAB PO (09:32)
[2017-10-06] MEDS: DOCUSATE SODIUM 100 MG CAP PO (09:32)
[2017-10-06] MEDS: ASPIRIN 81 MG TAB PO (09:32)
== END 2017-10-06 11:25 | disposition home health service (06) | DRG 56 ==
LOC: VRC 14:39
PROVIDERS: Physical Medicine & Rehabilitation
PROC: F07Z5FZ Bed Mobility Treatment using Assistive, Adaptive, Supportive or Protective Equipment (ICD-10-PCS; principal; 2017-09-30)
PROC: F07Z8FZ Transfer Training Treatment using Assistive, Adaptive, Supportive or Protective Equipment (ICD-10-PCS; 2017-09-30)
PROC: F07Z9FZ Gait Training/Functional Ambulation Treatment using Assistive, Adaptive, Supportive or Protective Equipment (ICD-10-PCS; 2017-09-30)
PROC: F08Z2FZ Grooming/Personal Hygiene Treatment using Assistive, Adaptive, Supportive or Protective Equipment (ICD-10-PCS; 2017-09-30)
PROC: F08Z1FZ Dressing Techniques Treatment using Assistive, Adaptive, Supportive or Protective Equipment (ICD-10-PCS; 2017-09-30)
PROC: F08Z0FZ Bathing/Showering Techniques Treatment using Assistive, Adaptive, Supportive or Protective Equipment (ICD-10-PCS; 2017-09-30)
DX: I69.351 Hemiplegia and hemiparesis following cerebral infarction affecting right dominant side (principal); G93.40 Encephalopathy, unspecified; I69.320 Aphasia following cerebral infarction; R13.10 Dysphagia, unspecified; I69.391 Dysphagia following cerebral infarction; I10 Essential (primary) hypertension; E11.9 Type 2 diabetes mellitus without complications; E78.5 Hyperlipidemia, unspecified; J45.909 Unspecified asthma, uncomplicated; F06.31 Mood disorder due to known physiological condition with depressive features; D50.9 Iron deficiency anemia, unspecified; K80.20 Calculus of gallbladder without cholecystitis without obstruction; Z79.4 Long term (current) use of insulin; Z79.84 Long term (current) use of oral hypoglycemic drugs; Z79.82 Long term (current) use of aspirin
CPT/HCPCS: 80048; 80053; 81001; 82962; 83735; 84100; 85025; 87081; 87086; 92507; 92523; 92526; 92610; 97110; 97112; 97116; 97163; 97167; 97530; 97535